=== PATIENT | female | born 1985 | race Caucasian/White ===

== ENCOUNTER 2017-05-07 05:48 | Day surgery (SDC) | payer MEDICAID ==
[2017-05-07] MEDS: LACTATED RINGER'S 1,000 ML IV* (05:30)
[2017-05-07] MEDS ORDERED: BUPIVACAINE 0.25%/EPI (SDV) 30 ML INJ (06:45)
[2017-05-07] MEDS ORDERED: MIDAZOLAM 1 MG/ML 2 ML INJ (07:47)
[2017-05-07] MEDS ORDERED: LIDOCAINE 1% (MDV) 20 ML INJ (07:47)
[2017-05-07] MEDS ORDERED: ROCURONIUM 50 MG INJ (07:47)
[2017-05-07] MEDS ORDERED: PROPOFOL 20 ML (07:47)
[2017-05-07] MEDS ORDERED: FENTAnyl 50 MCG/ML VIAL (07:47)
[2017-05-07] MEDS ORDERED: DEXAMETHASONE 4 MG/ML 1 ML INJ (07:59)
[2017-05-07] MEDS ORDERED: CEFAZOLIN 1 GM INJ (07:59)
[2017-05-07] MEDS ORDERED: ONDANSETRON 4 MG INJ (07:59)
[2017-05-07] MEDS: CEFAZOLIN 2 GM/50 ML (PMX) 50 ML IVPB (08:00)
[2017-05-07] MEDS: BUPIVACAINE 0.5%/EPI (SDV) 30 ML INJ INJ (08:11)
[2017-05-07] MEDS ORDERED: ACETAMINOPHEN 1000MG/100ML IV 100 ML (08:12)
[2017-05-07] MEDS ORDERED: ROPIVACAINE 0.2% 20 ML VIAL (08:31)
[2017-05-07] MEDS ORDERED: SUGAMMADEX SODIUM 200 MG/2 ML VIAL IV (08:47)
[2017-05-07] MEDS ORDERED: HYDROmorphONE (0.2 MG/ML) 10ML SYG IV (09:30)
[2017-05-07] MEDS: HYDROmorphONE (0.2 MG/ML) 10ML SYG IV (09:37)
[2017-05-07 11:21] LABS: ADD MAN DIFF? NO
[2017-05-07 11:22] LABS: BASOPHILS % 0.6 % (0.0-2.0); EOSINOPHILS # 0.1 10^3/ul (0.0-0.5); EOSINOPHILS % 1.7 % (0.0-7.0); HEMATOCRIT 40.6 % (37.0-47.0); HEMOGLOBIN 13.4 g/dl (12.0-16.0); LYMPHOCYTES # 2.2 10^3/ul (0.8-2.9); LYMPHOCYTES % 35.1 % (15.0-51.0); MEAN CORPUSCULAR HEMOGLOBIN 28.6 pg (29.0-33.0); MEAN CORPUSCULAR VOLUME 86.8 fl (82.0-101.0); MEAN PLATELET VOLUME 11.9 fl (7.4-10.4); MONOCYTE # 0.5 10^3/ul (0.3-0.9); MONOCYTES % 7.7 % (0.0-11.0); NEUTROPHIL # 3.5 10^3/ul (1.6-7.5); NEUTROPHILS % 54.4 % (39.0-77.0); PLATELET COUNT 190 10^3/UL (140-415); RED BLOOD COUNT 4.68 10^6/ul (4.20-5.40); RED CELL DISTRIBUTION WIDTH 13.4 % (11.5-14.5)
[2017-05-07 11:22] LABS: WHITE BLOOD COUNT 6.4 10^3/ul (4.8-10.8)
[2017-05-07 11:27] LABS: INR 1.03; PROTIME 13.6 Sec (11.9-14.9); PT RATIO 1.1
[2017-05-07 11:28] LABS: PARTIAL THROMBOPLASTIN TIME 30.7 Sec (25.0-35.0)
== END 2017-05-07 11:10 | disposition home or self-care (01) ==
LOC: SDS 05:48
DX: Z30.2 Encounter for sterilization (principal)
CPT/HCPCS: 58670; 85025; 85610; 85730